=== PATIENT | female | born 1985 | race Caucasian/White ===

== ENCOUNTER → 2018-02-19 | Outpatient (CLI) | payer MEDICAID ==
[~2018-02-19] MED LIST: IOPAMIDOL (ISOVUE 370) 100 ML BTL IV ONE
== END ==
LOC: FIMAGING 13:06
PROVIDERS: ATTEND Obstetrics & Gynecology
PROC: BU18YZZ Fluoroscopy of Uterus and Fallopian Tubes using Other Contrast (ICD-10-PCS; principal; 2018-02-19)
DX: N96 Recurrent pregnancy loss (principal)
CPT/HCPCS: Q9967

== ENCOUNTER 2018-05-07 07:11 | Emergency (ER) | payer MEDICAID ==
[2018-05-07] MEDS ORDERED: ONDANSETRON DISINTEGRATING 4 MG TAB PO ONE (07:33)
--- NOTE | 2018-05-07 07:37 | EDPHY ---
H & P Stated Complaint: RLQ pn since 399, urine retention Time Seen by Provider: 05/07/18 07:30 HPI/ROS: CHIEF COMPLAINT: Anxiety, difficulty urinating HISTORY OF PRESENT ILLNESS: Patient is a 33-year-old female with a history of anxiety as well as appendicectomy who states that she woke up at 4:00 a.m. With some suprapubic pain and feels like she cannot urinate. She felt normal yesterday and had no difficulty urinating. Discussed her to go into an anxiety attack which she is now having and is hyperventilating. She states that the hyperventilating is making her feel nauseous. No fevers. No diarrhea. No back pain or flank pain. She denies risk of . No significant vaginal bleeding or discharge. Severity: Moderate Modifying factors: None REVIEW OF SYSTEMS: Constitutional: denies: chills, fever, recent illness, recent injury EENTM: denies: blurred vision, double vision, nose congestion Respiratory: denies: cough, shortness of breath Cardiac: denies: chest pain, irregular heart rate, lightheadedness, palpitations Gastrointestinal/Abdominal: See HPI denies: diarrhea, vomiting, blood streaked stools Genitourinary: denies: dysuria, frequency, hematuria, pain Musculoskeletal: denies: joint pain, muscle pain Skin: denies: lesions, rash, jaundice, bruising Neurological: denies: headache, numbness, paresthesia, tingling, dizziness, weakness Hematologic/Lymphatic: denies: blood clots, easy bleeding, easy bruising Immunologic/allergic: denies: HIV/AIDS, transplant 10 systems reviewed and negative except as noted EXAM: GENERAL: Somewhat anxious, hyperventilating able to calm down, well-nourished and in no acute distress. HEAD: Atraumatic, normocephalic. EYES: Pupils equal round and reactive to light, extraocular movements intact, sclera anicteric, conjunctiva are normal. ENT: TMs normal, nares patent, oropharynx clear without exudates. Moist mucous membranes. NECK: Normal range of motion, supple without lymphadenopathy or JVD. LUNGS: Breath sounds clear to auscultation bilaterally and equal. No wheezes rales or rhonchi. HEART: Regular rate and rhythm without murmurs, rubs or gallops. ABDOMEN: Soft, nontender, normoactive bowel sounds. No guarding, no rebound. No masses appreciated. BACK: No CVA tenderness, no spinal tenderness, step-offs or deformities EXTREMITIES: Normal range of motion, no pitting or edema. No clubbing or cyanosis. NEUROLOGICAL: Cranial nerves II through XII grossly intact. Normal speech, normal gait. 5/5 strength, normal movement in all extremities, normal sensation , normal reflexes PSYCH: Normal mood, normal affect. SKIN: Warm, dry, normal turgor, no visible rashes or lesions. Source: Patient Exam Limitations: No limitations - Personal History Current Tetanus/Diphtheria Vaccine: No Tetanus Vaccine Date: 2002 - Medical/Surgical History Hx Asthma: No Hx Chronic Respiratory Disease: No Hx Diabetes: No Hx Cardiac Disease: No Hx Renal Disease: No Hx Cirrhosis: No Hx Alcoholism: No Hx HIV/AIDS: No Hx Splenectomy or Spleen Trauma: No Other PMH: Appendectomy, breast surgery - Family History Significant Family History: No pertinent family hx - Social History Smoking Status: Former smoker Alcohol Use: Sober Drug Use: None Constitutional: Initial Vital Signs Temperature (C) 36.4 C 05/07/18 07:16 Heart Rate 89 05/07/18 07:16 Respiratory Rate 22 H 05/07/18 07:16 Blood Pressure 102/72 05/07/18 07:16 O2 Sat (%) 100 05/07/18 07:16 O2 Delivery Mode Room Air Allergies/Adverse Reactions: Latex, Natural Rubber Allergy (Verified 05/07/18 07:16) Home Medications: Medication Instructions Recorded Pharmacy Completed-See Comment 1 [facility] 10/27/11 Docosahexanoic Acid [Dha Algal-900] 1 tab PO DAILY 12/04/12 Vit27&Calcium/Iron/FA 1 tab PO DAILY 12/04/12 [] Ketorolac Tromethamine 10 mg PO Q6H PRN #16 tab 05/07/18 Ondansetron Odt [Zofran Odt 4 mg 4 mg PO Q4 PRN #20 tab 05/07/18 (RX)] Tamsulosin HCl [Flomax] 0.4 mg PO DAILY #10 cap 05/07/18 Medical Decision Making - Diagnostics Imaging: Discussed imaging studies w/ physically impaired teacher Radiologist ED Course/Re-evaluation: The patient was able to urinate here. Her postvoid residual is 0. Her urine is negative. Patient's urinalysis shows blood only. She is not menstruating. She tells me now that she did have some slight right flank pain. This could be a kidney stone. It woke her up abruptly this morning. We will obtain lab work and CT scan. She is currently now pain free. 9:20 a[address] we discussed the CT results. I suspect the patient either has or has passed a kidney stone. She has another stone up in the renal pelvis. We discussed that this will pass sometime in the future. Her pain is currently controlled. I will prescribe her Toradol and Zofran. We also discussed Flomax and straining her urine and follow up with Urology. She feels comfortable at this time and is eager to go home and declines further workup or testing. Differential Diagnosis: Partial list of the Differential diagnosis considered include but were not limited to; kidney stone, urinary tract infection and although unlikely based on the history and physical exam, I also considered STD, diverticulitis, perforation, obstruction. I discussed these differential diagnoses and the plan with the patient as well as the usual and expected course. The patient understands that the diagnosis is provisional and that in medicine we are not always correct and that further workup is often warranted. Usual and customary warnings were given. All of the patient's questions were answered. The patient was instructed to return to the emergency department should the symptoms at all worsen or return, otherwise to followup with the physician as we discussed. - Data Points Laboratory Results: Laboratory Results 05/07/18 08:30 12 08:30 Medications Given: Discontinued Medications Sodium Chloride (Ns) 1,000 mls @ 0 mls/hr IV EDNOW ONE; Wide Open PRN Reason: Protocol Stop: 05/07/18 08:27 Last Admin: 05/07/18 08:33 Dose: 1,000 mls Ketorolac Tromethamine (Toradol) 30 mg IVP EDNOW ONE Stop: 05/07/18 09:16 Last Admin: 05/07/18 09:16 Dose: 30 mg Ondansetron HCl (Zofran Odt) 4 mg PO EDNOW ONE Stop: 05/07/18 07:34 Last Admin: 05/07/18 07:42 Dose: 4 mg Point of Care Test Results: Urine Collection Date 05/07/18 Collection Time 07:45 HCG Results Negative Departure - Departure Disposition: Home, Routine, Self-Care Clinical Impression: Renal colic on right side Condition: Serious Instructions: Kidney Stones (ED) Referrals: NONE *PRIMARY CARE P,. [Primary Care Provider] - As per Instructions Taras Gibson MD [Medical Doctor] - 5-7 days, if not improved Prescriptions: Ketorolac Tromethamine 10 mg PO Q6H PRN #16 tab PRN Reason: Pain/inflammation Ondansetron Odt [Zofran Odt 4 mg (RX)] 4 mg PO Q4 PRN #20 tab PRN Reason: Nausea & Vomiting Tamsulosin HCl [Flomax] 0.4 mg PO DAILY #10 cap
[2018-05-07] MEDS ORDERED: NS 1,000 ML IV ONE (08:26)
[2018-05-07 08:43] LABS: PLATELET COUNT 254 10^3/uL (150-400)
[2018-05-07] MEDS ORDERED: KETOROLAC 30 MG/1 ML SDV ONE (09:14)
[2018-05-07] MEDS ORDERED: KETOROLAC 30 MG/1 ML SDV IVP ONE (09:15)
[2018-05-07 09:58] VITALS: BP 100/63
== END 2018-05-07 09:58 | disposition home or self-care (01) ==
DX: N23 Unspecified renal colic (principal)
CPT/HCPCS: 96374; J1885